=== PATIENT | female | born 1960 | race Caucasian/White ===

== ENCOUNTER → 2017-05-19 | Outpatient (CLI) | payer OTHER ==
[2017-05-19 15:48] LABS: Basophils # (A) 0.1 k/uL (0-0.2); Basophils % (A) 1 %; Eosinophils # (A) 0.1 k/uL (0-0.7); Eosinophils % (A) 1 %; HCT 42.5 % (34.0-46.0); HGB 14.4 gm/dL (11.4-16.0); Lymphocytes # (A) 1.6 k/uL (1.0-4.8); Lymphocytes % (A) 28 %; MCHC 33.9 g/dL (31.0-37.0); MCV 88.6 fL (80.0-100.0); Monocytes # (A) 0.3 k/uL (0-1.0); Monocytes % (A) 4 %; Neutrophils # (A) 3.9 k/uL (1.3-7.7); Neutrophils % (A) 66 %; Platelet Count 233 k/uL (150-450); RBC 4.79 m/uL (3.80-5.40); RDW 12.7 % (11.5-15.5); WBC 5.9 k/uL (3.8-10.6)
[2017-05-19 15:59] LABS: Anion Gap 11 mmol/L; Blood Urea Nitrogen 14 mg/dL (7-17); C Reactive Protein 26.7 mg/L (<10.0); Calcium 9.6 mg/dL (8.4-10.2); Carbon Dioxide 25 mmol/L (22-30); Chloride 107 mmol/L (98-107); Glucose 138 mg/dL (74-99); Magnesium 1.9 mg/dL (1.6-2.3); Potassium 4.1 mmol/L (3.5-5.1); Sodium 143 mmol/L (137-145); Uric Acid 4.8 mg/dL (3.7-7.4)
[2017-05-19 16:48] LABS: Erythrocyte Sedimentation Rate 13 mm/hr (0-20)
[2017-05-19 18:19] LABS: Rheumatoid Factor 8 IU/mL (0-15)
[2017-05-19 18:38] LABS: Vitamin D 25 Hydroxy 13.5 ng/mL (30.0-100.0)
== END | disposition home or self-care (01) ==
LOC: LABWHC1 15:05
PROVIDERS: ATTEND Family Medicine
DX: E03.9 Hypothyroidism, unspecified (principal); M79.7 Fibromyalgia; M54.9 Dorsalgia, unspecified; J45.30 Mild persistent asthma, uncomplicated
CPT/HCPCS: 36415; 80048; 82306; 83735; 84550; 85025; 85652; 86038; 86140; 86431

== ENCOUNTER → 2018-12-14 | Outpatient (CLI) | payer OTHER ==
--- NOTE | 2018-12-14 14:05 | MM ---
Reason for exam: clinical finding. Last mammogram was performed 12 years and 6 months ago. History: Patient is postmenopausal and is nulliparous. Family history of breast cancer in sister at age 61 and breast cancer in mother at age 68. Reduction of the left breast. Reduction of the right breast. Physical Findings: Nurse did not find any significant physical abnormalities on exam. MG 3D Diag Mammo W/Cad ELI Bilateral CC and MLO view(s) were taken. Prior study comparison: June 17, 2006, bilateral screening mammogram w/CAD. June 09, 2000, bilateral screening mammogram. There are scattered fibroglandular densities. Benign appearing bilateral calcifications. No suspicious abnormality. These results were verbally communicated with the patient and result sheet given to the patient on 12/14/18. ASSESSMENT: Incomplete: need additional imaging evaluation, BI-RAD 0 RECOMMENDATION: Ultrasound of both breasts. (bilateral areas of pain)
--- NOTE | 2018-12-14 14:08 | USB ---
Reason for exam: clinical finding. History: Patient is postmenopausal and is nulliparous. Family history of breast cancer in sister at age 61 and breast cancer in mother at age 68. Reduction of the left breast. Reduction of the right breast. US Breast Limited BILAT Right limited breast ultrasound including focal area of concern, retroareolar and axilla demonstrates no cystic or solid lesion seen. Left limited breast ultrasound including focal area of concern, retroareolar and axilla demonstrates no cystic or solid lesion seen. No sonographic correlate for the patient's pain. No suspicious sonographic finding. These results were verbally communicated with the patient and result sheet given to the patient on 12/14/18. ASSESSMENT: Negative, BI-RAD 1 RECOMMENDATION: Routine screening mammogram of both breasts in 1 year. Manage patient on a clinical basis.
== END | disposition home or self-care (01) ==
LOC: RADMAMWWP 12:52
PROVIDERS: ATTEND Family Medicine
DX: N64.4 Mastodynia (principal); R92.8 Other abnormal and inconclusive findings on diagnostic imaging of breast; N63.0 Unspecified lump in unspecified breast
CPT/HCPCS: 77066; 76642; G0279; 77062

== ENCOUNTER 2019-12-01 01:39 | Emergency (ER) | payer OTHER ==
[2019-12-01 01:44] VITALS: BP 171/80; PULSE 80; RESP 17; TEMP 97.8
[2019-12-01] MEDS ORDERED: ACETAMINOPHEN TAB 325 MG TAB PO STA (01:54)
[2019-12-01] MEDS ORDERED: DIPH,PERTUS(ACELL)TETVAC-LF 0.5 ML VIAL IM ONE (01:57)
--- NOTE | 2019-12-01 01:59 | ED ---
Upper Extremity HPI - General Chief Complaint: Extremity Injury, Upper Stated Complaint: lt hand injury Time Seen by Provider: 12/01/19 01:46 Source: patient Mode of arrival: ambulatory - History of Present Illness Initial Comments: 59-year-old female patient presents to the emergency department today for evaluation of left hand injury. Patient states she was walking her dog when she tripped and fell injuring the hand. Denies hitting her head or losing consciousness. Denies any neck or back injury. Patient states she is having pain to the lateral aspect of the hand at the base of the fifth digit. She did sustain abrasion to the hand. States that she is unsure when her last tetanus vaccine was given. She has not taking anything for pain. Denies any other injuries or concerns. Patient denies any headache, neck pain, back pain, chest pain, shortness of breath, dizziness, weakness, abdominal pain, nausea, vomiting, or difficulties with bowel movements or urination. - Related Data Home Medications Medication Instructions Recorded Confirmed DULoxetine HCL [Cymbalta] 60 mg PO DAILY 04/17/14 03/09/15 Levothyroxine Sodium [Synthroid] 50 mcg PO DAILY 04/17/14 03/09/15 Allergies Allergy/AdvReac Type Severity Reaction Status Date / Time niacin Allergy Unknown Verified 03/09/15 13:49 Penicillins Allergy Unknown Verified 03/09/15 13:49 Sulfa (Sulfonamide Allergy Unknown Verified 03/09/15 13:49 Antibiotics) Review of Systems ROS Statement: Those systems with pertinent positive or pertinent negative responses have been documented in the HPI. ROS Other: All systems not noted in ROS Statement are negative. Past Medical History Past Medical History: Fibromyalgia, Sleep Apnea/CPAP/BIPAP, Thyroid Disorder Additional Past Medical History / Comment(s): [place] MS History of Any Multi-Drug Resistant Organisms: None Reported Past Surgical History: Tonsillectomy Additional Past Surgical History / Comment(s): left knee arthroscopy. Breast reduction. thyroid cyst removal Past Psychological History: Depression Smoking Status: Never smoker Past Alcohol Use History: None Reported Past Drug Use History: None Reported General Exam General appearance: alert, in no apparent distress, other (This is a well- developed, well-nourished adult female patient in no acute distress. Vital signs upon presentation are temperature 97.8F, pulse 80, respirations 17, blood pressure 171/80, pulse ox 98% on room air per) Neck exam: Present: normal inspection, full ROM, other (Nontender, no step-off, no deformity to firm midline palpation of the posterior cervical spine. Full range of motion without pain or limitation.). Absent: tenderness, meningismus, lymphadenopathy Respiratory exam: Present: normal lung sounds bilaterally. Absent: respiratory distress, wheezes, rales, rhonchi, stridor Cardiovascular Exam: Present: regular rate, normal rhythm, normal heart sounds. Absent: systolic murmur, diastolic murmur, rubs, gallop, clicks Extremities exam: Present: full ROM, tenderness (Tenderness over the left fifth digit and fifth metacarpal.), normal capillary refill, other (There is abrasion noted over the left lateral hand at the base of the fifth digit. Skin is otherwise pink, warm, dry. Cap refills less than 3 seconds. Radial pulses 2+ and equal bilaterally.). Absent: normal inspection, pedal edema, joint swelling, calf tenderness Back exam: Present: normal inspection. Absent: vertebral tenderness Neurological exam: Present: alert, oriented X3, CN II-XII intact Psychiatric exam: Present: normal affect, normal mood Skin exam: Present: warm, dry, intact, normal color. Absent: rash Course Vital Signs 12/01/19 01:40 Temperature 97.8 F Pulse Rate 80 Respiratory 17 Rate Blood Pressure 171/80 O2 Sat by Pulse 98 Oximetry Medical Decision Making - Medical Decision Making 59-year-old female patient presents to the emergency department today for evaluation of left hand pain. Physical examination did reveal abrasion over the left lateral hand at the base of the fifth digit. Patient does exhibit full range of motion. Mild swelling to the left fifth digit. X-ray was obtained and showed no acute abnormalities. She was neurovascularly intact. Patient symptoms are consistent with hand sprain. She was placed in an Ciro wrap. She is educated regarding rest, ice, elevation. She is instructed to follow-up with her primary care physician for recheck in 1-2 days. She is instructed to have r epeat x-rays performed in 7-10 days if pain symptoms persist. Return parameters were discussed in detail. She verbalizes understanding and agrees with this plan. - Radiology Data Radiology results: report reviewed, image reviewed 3 views of the left hand are obtained. Report is reviewed in its entirety. Impression by Dr. Parada shows mild joint space narrowing of the fingers. No fracture seen. No evidence of inflammatory arthritis. Disposition Clinical Impression: Sprain of left hand Disposition: HOME SELF-CARE Condition: Good Instructions (If sedation given, give patient instructions): Hand Sprain (ED) Additional Instructions: Use Ciro wrap for comfort and support. Rest, ice, elevate the hand. Follow-up through primary care physician for recheck in 1-2 days. Have repeat x-rays performed in 7-10 days if pain symptoms persist. Return to the emergency department immediately for any new, worsening, or concerning symptoms. Is patient prescribed a controlled substance at d/c from ED?: No Referrals: Albert Busch MD [Primary Care Provider] - 1-2 days Time of Disposition: 02:36
--- NOTE | 2019-12-01 02:07 | XR ---
EXAMINATION TYPE: XR hand complete LT DATE OF EXAM: 12/01/2019 COMPARISON: NONE HISTORY: Hand pain TECHNIQUE: 3 views FINDINGS: Metacarpals appear intact. I see no fracture nor dislocation. Carpal bones are intact. The wrist joint is intact. There are no erosions. There is no subluxation. There is some narrowing of the IP joint spaces of the fingers. IMPRESSION: Mild joint space narrowing of the fingers. No fracture seen. No evidence of inflammatory arthritis.
== END 2019-12-01 02:38 | disposition home or self-care (01) ==
LOC: EC 01:39
DX: S63.92XA Sprain of unspecified part of left wrist and hand, initial encounter (principal); S60.417A Abrasion of left little finger, initial encounter; F32.9 Major depressive disorder, single episode, unspecified; G47.30 Sleep apnea, unspecified; E07.9 Disorder of thyroid, unspecified; Z23 Encounter for immunization; Z88.0 Allergy status to penicillin; Z88.2 Allergy status to sulfonamides; Z88.1 Allergy status to other antibiotic agents; Z98.890 Other specified postprocedural states; Z99.89 Dependence on other enabling machines and devices; W01.0XXA Fall on same level from slipping, tripping and stumbling without subsequent striking against object, initial encounter; Y93.K1 Activity, walking an animal; Y92.009 Unspecified place in unspecified non-institutional (private) residence as the place of occurrence of the external cause
CPT/HCPCS: 90471; 90715; 99283

== ENCOUNTER → 2020-02-10 | Outpatient (CLI) | payer OTHER ==
[2020-02-10 12:54] LABS: Basophils # (A) 0.1 k/uL (0-0.2); Basophils % (A) 1 %; Eosinophils # (A) 0.1 k/uL (0-0.7); Eosinophils % (A) 1 %; HCT 45.4 % (34.0-46.0); HGB 14.8 gm/dL (11.4-16.0); Lymphocytes % (A) 25 %; MCH 28.6 pg (25.0-35.0); MCHC 32.6 g/dL (31.0-37.0); MCV 87.7 fL (80.0-100.0); Monocytes # (A) 0.3 k/uL (0-1.0); Monocytes % (A) 3 %; Neutrophils # (A) 5.5 k/uL (1.3-7.7); Neutrophils % (A) 69 %; Platelet Count 284 k/uL (150-450); RBC 5.18 m/uL (3.80-5.40); RDW 13.3 % (11.5-15.5)
[2020-02-10 22:39] LABS: African American GFR (CKD) 80.5 (60.0-200.0); Albumin 4.2 g/dL (3.80-4.90); Albumin/Globulin Ratio 2.21 (1.60-3.17); BUN/Creat Ratio 14.44 Ratio (12.00-20.00); Calcium 9.4 mg/dL (8.7-10.3); Globulin 1.9 g/dL (1.6-3.3); Non-African American GFR(CKD) 69.5 (60.0-200.0); Potassium 4.2 mmol/L (3.5-5.5); Total Bilirubin 0.8 mg/dL (0.3-1.2); Total Protein 6.1 g/dL (6.2-8.2)
[2020-02-10 22:51] LABS: T4, Free (Free Thyroxine) 0.9 ng/dL (0.80-1.80)
== END | disposition home or self-care (01) ==
LOC: LABWHC1 12:02
PROVIDERS: ATTEND Nurse Practitioner Women's Health
DX: R00.9 Unspecified abnormalities of heart beat (principal); R00.2 Palpitations; E03.9 Hypothyroidism, unspecified; Z79.899 Other long term (current) drug therapy; R07.9 Chest pain, unspecified
CPT/HCPCS: 36415; 80053; 84439; 84443; 85025; 93005

== ENCOUNTER 2020-05-10 06:50 | Emergency (ER) | payer OTHER ==
[2020-05-10 06:55] VITALS: TEMP 97.9
[2020-05-10] MEDS ORDERED: SODIUM CHLORIDE 0.9% 500 ML 500 ML IV STA (07:06)
--- NOTE | 2020-05-10 07:14 | ED ---
General Adult HPI - General Chief complaint: Headache Stated complaint: Eye Problems Time Seen by Provider: 05/10/20 06:57 Source: patient, RN notes reviewed Mode of arrival: ambulatory Limitations: no limitations - History of Present Illness Initial comments: This a 59-year-old female presents emergency Department with multiple complaints. Patient states symptoms have been present over the last 3 days she has not felt well she's been having severe headache patient states it does wax and wane she states that was most severe this morning but she took 2 full dose aspirin prior arrival states it did seem to help. She thought was discussed initially some sinus congestion. She states she is was have a stress test on Thursday for ongoing symptoms but states that she did not feel well she has some chest pain or shortness breath which is still on and off going and she did have some symptoms this morning with her headache. Patient states she canceled was ordered by Dr. Perry. Patient states that she has no history of hypertension but found to have an elevated blood pressure on arrival states she does feel slightly anxious. Denies any GI symptoms including nausea vomiting diarrhea constipation no fevers or chills no significant cough no sick contacts. Denies any leg swelling. Patient denies any focal weakness no paresthesias of the usual. She was started on Lyrica recently. Patient also woke up felt that her symptoms in her right eye when looked in the near and noticed a large subconjunctival hemorrhage. - Related Data Home Medications Medication Instructions Recorded Confirmed DULoxetine HCL [Cymbalta] 60 mg PO DAILY 04/17/14 05/10/20 Pregabalin [Lyrica CR] 330 mg PO HS 05/10/20 05/10/20 Allergies Allergy/AdvReac Type Severity Reaction Status Date / Time niacin Allergy Unknown Verified 05/10/20 09:00 Penicillins Allergy Unknown Verified 05/10/20 09:00 Sulfa (Sulfonamide Allergy Unknown Verified 05/10/20 09:00 Antibiotics) Review of Systems ROS Statement: Those systems with pertinent positive or pertinent negative responses have been documented in the HPI. ROS Other: All systems not noted in ROS Statement are negative. Past Medical History Past Medical History: Fibromyalgia, Sleep Apnea/CPAP/BIPAP, Thyroid Disorder Additional Past Medical History / Comment(s): [place] MS History of Any Multi-Drug Resistant Organisms: None Reported Past Surgical History: Tonsillectomy Additional Past Surgical History / Comment(s): left knee arthroscopy. Breast reduction. thyroid cyst removal Past Psychological History: Depression Smoking Status: Never smoker Past Alcohol Use History: None Reported Past Drug Use History: None Reported General Exam Limitations: no limitations General appearance: alert, in no apparent distress Head exam: Present: atraumatic, normocephalic, normal inspection Eye exam: Present: PERRL, EOMI, conjunctival injection (Large subconjunctival hemorrhage on the right thigh lateral portion). Absent: normal appearance, scleral icterus, periorbital swelling ENT exam: Present: normal exam, normal oropharynx, mucous membranes moist, TM's normal bilaterally Neck exam: Present: normal inspection. Absent: tenderness, meningismus, lymphadenopathy Respiratory exam: Present: normal lung sounds bilaterally. Absent: respiratory distress, wheezes, rales, rhonchi, stridor Cardiovascular Exam: Present: regular rate, normal rhythm, normal heart sounds. Absent: systolic murmur, diastolic murmur, rubs, gallop, clicks GI/Abdominal exam: Present: soft, normal bowel sounds. Absent: distended, tenderness, guarding, rebound, rigid Neurological exam: Present: alert, oriented X3, reflexes normal. Absent: motor sensory deficit Skin exam: Present: warm, dry, intact, normal color. Absent: rash Course Vital Signs 05/10/20 05/10/20 06:53 08:20 Temperature 97.9 F Pulse Rate 86 73 Respiratory 20 18 Rate Blood Pressure 169/117 143/73 O2 Sat by Pulse 95 97 Oximetry Medical Decision Making - Medical Decision Making 5-year-old female presented for generalized not feeling well. Patient complete workup including CT, x-ray, EKG, Covid also results are negative. Patient was also a cyst on Thursday but canceled she has no complaints of chest pain she has in the past. Patient offered admission patient declined states she does want to go home. Patient understands risk of going home return parameters were discussed. - Lab Data Result diagrams: 05/10/20 07:30 05/10/20 07:30 Lab Results 05/10/20 05/10/20 05/10/20 Range/Units 07:30 07:30 07:30 WBC 6.4 (3.8-10.6) k/uL RBC 4.83 (3.80-5.40) m/uL Hgb 14.2 (11.4-16.0) gm/dL Hct 42.1 (34.0-46.0) % MCV 87.1 (80.0-100.0) fL MCH 29.5 (25.0-35.0) pg MCHC 33.8 (31.0-37.0) g/dL RDW 12.9 (11.5-15.5) % Plt Count 222 (150-450) k/uL MPV 7.6 Neutrophils % 54 % Lymphocytes % 37 % Monocytes % 5 % Eosinophils % 2 % Basophils % 1 % Neutrophils # 3.5 (1.3-7.7) k/uL Lymphocytes # 2.4 (1.0-4.8) k/uL Monocytes # 0.3 (0-1.0) k/uL Eosinophils # 0.1 (0-0.7) k/uL Basophils # 0.0 (0-0.2) k/uL PT 10.2 (9.0-12.0) sec INR 0.9 (<1.2) APTT 23.0 (22.0-30.0) sec Sodium 139 (137-145) mmol/L Potassium 3.8 (3.5-5.1) mmol/L Chloride 107 (98-107) mmol/L Carbon Dioxide 26 (22-30) mmol/L Anion Gap 6 mmol/L BUN 18 H (7-17) mg/dL Creatinine 0.80 (0.52-1.04) mg/dL Est GFR (CKD-EPI)AfAm >90 (>60 ml/min/1.73 sqM) Est GFR (CKD-EPI)NonAf 81 (>60 ml/min/1.73 sqM) Glucose 108 H (74-99) mg/dL Calcium 9.1 (8.4-10.2) mg/dL Magnesium 1.9 (1.6-2.3) mg/dL Total Bilirubin 0.6 (0.2-1.3) mg/dL AST 19 (14-36) U/L ALT 13 (4-34) U/L Alkaline Phosphatase 86 (38-126) U/L Creatine Kinase 42 (30-135) U/L Troponin I (0.000-0.034) ng/mL NT-Pro-B Natriuret Pep pg/mL Total Protein 6.4 (6.3-8.2) g/dL Albumin 3.8 (3.5-5.0) g/dL Lipase 80 (23-300) U/L Coronavirus (PCR) (Not Detectd) 05/10/20 05/10/20 05/10/20 Range/Units 07:30 07:30 07:30 WBC (3.8-10.6) k/uL RBC (3.80-5.40) m/uL Hgb (11.4-16.0) gm/dL Hct (34.0-46.0) % MCV (80.0-100.0) fL MCH (25.0-35.0) pg MCHC (31.0-37.0) g/dL RDW (11.5-15.5) % Plt Count (150-450) k/uL MPV Neutrophils % % Lymphocytes % % Monocytes % % Eosinophils % % Basophils % % Neutrophils # (1.3-7.7) k/uL Lymphocytes # (1.0-4.8) k/uL Monocytes # (0-1.0) k/uL Eosinophils # (0-0.7) k/uL Basophils # (0-0.2) k/uL PT (9.0-12.0) sec INR (<1.2) APTT (22.0-30.0) sec Sodium (137-145) mmol/L Potassium (3.5-5.1) mmol/L Chloride (98-107) mmol/L Carbon Dioxide (22-30) mmol/L Anion Gap mmol/L BUN (7-17) mg/dL Creatinine (0.52-1.04) mg/dL Est GFR (CKD-EPI)AfAm (>60 ml/min/1.73 sqM) Est GFR (CKD-EPI)NonAf (>60 ml/min/1.73 sqM) Glucose (74-99) mg/dL Calcium (8.4-10.2) mg/dL Magnesium (1.6-2.3) mg/dL Total Bilirubin (0.2-1.3) mg/dL AST (14-36) U/L ALT (4-34) U/L Alkaline Phosphatase (38-126) U/L Creatine Kinase (30-135) U/L Troponin I <0.012 (0.000-0.034) ng/mL NT-Pro-B Natriuret Pep 45 pg/mL Total Protein (6.3-8.2) g/dL Albumin (3.5-5.0) g/dL Lipase (23-300) U/L Coronavirus (PCR) Not Detected (Not Detectd) Disposition Clinical Impression: Viral infection, Headache, Subconjunctival hemorrhage Disposition: HOME SELF-CARE Condition: Stable Instructions (If sedation given, give patient instructions): Acute Headache (ED) Additional Instructions: Please return to the Emergency Department if symptoms worsen or any other concerns. Is patient prescribed a controlled substance at d/c from ED?: No Referrals: Albert Busch MD [Primary Care Provider] - 1-2 days Time of Disposition: 10:15
[2020-05-10 07:57] LABS: Basophils % (A) 1 %; Eosinophils # (A) 0.1 k/uL (0-0.7); Eosinophils % (A) 2 %; HCT 42.1 % (34.0-46.0); HGB 14.2 gm/dL (11.4-16.0); Lymphocytes # (A) 2.4 k/uL (1.0-4.8); Lymphocytes % (A) 37 %; MCH 29.5 pg (25.0-35.0); MCHC 33.8 g/dL (31.0-37.0); MCV 87.1 fL (80.0-100.0); Mean Platelet Volume 7.6; Monocytes # (A) 0.3 k/uL (0-1.0); Monocytes % (A) 5 %; Neutrophils # (A) 3.5 k/uL (1.3-7.7); Neutrophils % (A) 54 %; Platelet Count 222 k/uL (150-450); RBC 4.83 m/uL (3.80-5.40); RDW 12.9 % (11.5-15.5); WBC 6.4 k/uL (3.8-10.6)
[2020-05-10 08:04] LABS: INR 0.9 (<1.2); Prothrombin Time 10.2 sec (9.0-12.0)
[2020-05-10] MEDS ORDERED: ACETAMINOPHEN TAB 325 MG TAB PO STA (08:10)
[2020-05-10] MEDS ORDERED: METOCLOPRAMIDE 5 MG/ML 2 ML VIAL IVP STA (08:11)
[2020-05-10] MEDS ORDERED: diphenhydrAMINE 50 MG/ML 1 ML VIAL IVP STA (08:11)
[2020-05-10 08:13] LABS: ALT 13 U/L (4-34); AST 19 U/L (14-36); Albumin 3.8 g/dL (3.5-5.0); Alkaline Phosphatase 86 U/L (38-126); Anion Gap 6 mmol/L; Blood Urea Nitrogen 18 mg/dL (7-17); Calcium 9.1 mg/dL (8.4-10.2); Carbon Dioxide 26 mmol/L (22-30); Chloride 107 mmol/L (98-107); Creatine Kinase 42 U/L (30-135); Glucose 108 mg/dL (74-99); Lipase 80 U/L (23-300); Magnesium 1.9 mg/dL (1.6-2.3); Potassium 3.8 mmol/L (3.5-5.1); Sodium 139 mmol/L (137-145); Total Bilirubin 0.6 mg/dL (0.2-1.3); Total Protein 6.4 g/dL (6.3-8.2)
[2020-05-10 08:15] LABS: African American GFR (CKD) >90 (>60 ml/min/1.73 sqM); Non-African American GFR(CKD) 81 (>60 ml/min/1.73 sqM)
--- NOTE | 2020-05-10 08:25 | CT ---
EXAMINATION TYPE: CT brain wo con DATE OF EXAM: 05/10/2020 COMPARISON: None HISTORY: 59-year-old female with persistent headache x 3 days TECHNIQUE: Examination was done in axial plane without intravenous contrast. Coronal and sagittal r econstructions performed. CT DLP: 1099.4 mGycm Automated exposure control for dose reduction was used. FINDINGS: There is no evidence of acute intracranial hemorrhage, acute ischemic changes, mass, mass-effect, or extra-axial fluid collection. There is no effacement of cerebral sulci or basal subarachnoid cister ns. There is no hydrocephalus. There is no midline shift. Maldonado-white matter distinction is preserv ed. Mild patchy white matter hypodensities in both cerebral hemispheres. Normal variation of hyperostosis frontalis interna. Paranasal sinuses and mastoid air cells well pneumatized. Orbits and globes are intact. IMPRESSION: Mild patchy burden of chronic small vessel ischemic disease. No acute intracranial abnormality seen.
--- NOTE | 2020-05-10 08:25 | XR ---
EXAMINATION TYPE: XR chest 2V DATE OF EXAM: 05/10/2020 COMPARISON: None HISTORY: 59-year-old female with chest pain and persistent headache TECHNIQUE: PA and lateral views FINDINGS: The cardiomediastinal silhouette, aorta, and pulmonary vasculature are within normal limits. Lungs an d pleural spaces are clear. IMPRESSION: No acute cardiopulmonary process.
[2020-05-10 08:29] VITALS: RESP 18
[2020-05-10 10:17] VITALS: BP 153/97; PULSE 63
== END 2020-05-10 10:45 | disposition home or self-care (01) ==
LOC: EC 06:50
DX: B34.9 Viral infection, unspecified (principal); H11.31 Conjunctival hemorrhage, right eye; M79.7 Fibromyalgia; G47.30 Sleep apnea, unspecified; F32.9 Major depressive disorder, single episode, unspecified; Z20.822 Contact with and (suspected) exposure to COVID-19; Z79.899 Other long term (current) drug therapy; Z88.0 Allergy status to penicillin; Z88.2 Allergy status to sulfonamides; Z88.8 Allergy status to other drugs, medicaments and biological substances; Z99.89 Dependence on other enabling machines and devices
CPT/HCPCS: 99284; 96374; 96375; 96361; 36415; 93005; 83880; 80053; 82550; 83690; 83735; 84484; 85025; 85610; 85730; 87635; 71046; 70450; J1200; J2765

== ENCOUNTER → 2020-05-15 | Outpatient (CLI) | payer OTHER ==
--- NOTE | 2020-05-15 17:57 | US ---
EXAMINATION TYPE: US venous doppler duplex LE BI DATE OF EXAM: 05/15/2020 2:16 PM COMPARISON: NONE CLINICAL HISTORY: 59-year-old female M79.661 M79.662 R10.2. LEFT leg pain SIDE PERFORMED: Bilateral TECHNIQUE: The lower extremity deep venous system is examined utilizing real time linear array sonog deya with graded compression, doppler sonography and color-flow sonography. FINDINGS: VESSELS IMAGED: Common Femoral Vein Deep Femoral Vein Greater Saphenous Vein * Femoral Vein Popliteal Vein Small Saphenous Vein * Proximal Calf Veins (* superficial vessels) Right Leg: Appears negative for DVT Left Leg: Appears negative for DVT IMPRESSION: No evidence for DVT within the bilateral lower extremities imaged from the groin to the upper calves.
--- NOTE | 2020-05-16 11:25 | P.ARTDOP ---
Arterial Doppler LOWER EXTREMITY ARTERIAL DOPPLER: DATE OF SERVICE: 05/15/2020 Reason for study: Left groin pain. Doppler waveforms: Multiphasic bilaterally throughout. Pulse volume recording: []. Pressure gradients: None. Ankle-brachial indices: Greater than 1 bilaterally. Toe brachial indices: 0.81 on the right, 0.97 on the left Impression: Normal study.
== END | disposition home or self-care (01) ==
LOC: RADUSWWP 13:42
PROVIDERS: ATTEND Family Medicine
DX: M79.661 Pain in right lower leg (principal); M79.662 Pain in left lower leg; R10.2 Pelvic and perineal pain; Z88.0 Allergy status to penicillin; Z88.2 Allergy status to sulfonamides; Z88.8 Allergy status to other drugs, medicaments and biological substances
CPT/HCPCS: 93922; 93970